=== PATIENT | female | born 1980 | race Caucasian/White ===

== ENCOUNTER 2017-12-09 17:47 | Emergency (ER) | payer MEDICARE ==
[~2017-12-09 17:47] MED LIST: ESCI20TA MT; GABA-531 MT; HYDR200T80 PO
[2017-12-09 22:28] VITALS: BP 121/78
[2017-12-09] MEDS ORDERED: HYDROCODONE/ACETAMINOPHEN 5/325MG TABLET PO ONE (23:00)
[2017-12-09] MEDS ORDERED: ACYCLOVIR 400 MG TABLET PO ONE (23:00)
== END 2017-12-09 20:14 | disposition left against medical advice (07) ==
LOC: ER 17:47
DX: Z53.21 Procedure and treatment not carried out due to patient leaving prior to being seen by health care provider (principal)

== ENCOUNTER 2020-07-09 14:40 | Inpatient (IN) | payer MEDICARE, MEDICAID ==
[~2020-07-09] VITALS: Ht 162.6 cm; Wt 65.3 kg
[~2020-07-09 14:40] MED LIST changes: +CHOL400D7 PO; -ESCI20TA MT; +FISH1CAP2 PO; -GABA-531 MT; -HYDR200T80 PO; +MULT-1146 MT
[2020-07-09 15:45] LABS: HEMOGLOBIN. 8.5 g/dL (12.0-16.0); MEAN CORPUSCULAR HEMOGLOBIN 25.2 pg (28.0-32.0); MEAN CORPUSCULAR VOLUME 77.2 fL (81.0-99.0); PLATELET 198 x1000/uL (130-400); RED BLOOD CELL COUNT 3.37 mill/uL (4.2-5.4); RED CELL DISTRIBUTION WIDTH 17.7 % (11.6-14.6)
[2020-07-09 15:51] LABS: CHLORIDE 108 mEq/L (98-107)
[2020-07-09 15:52] LABS: HCG SCREEN NEGATIVE
[2020-07-09 16:02] LABS: PROTHROMBIN TIME 11.2 sec (9.6-11.0)
[2020-07-09 16:20] LABS: PLATELET ESTIMATE NORMAL
[2020-07-09] MEDS ORDERED: ACETAMINOPHEN 325MG TABLET PO PRN (20:15)
[2020-07-09] MEDS ORDERED: MAGNESIUM/ALUMINUM HYDROXIDE/SIMETHICONE 30ML UDC PO PRN (20:15)
[2020-07-09] MEDS ORDERED: CLONIDINE 0.1MG TABLET PO PRN (20:15)
[2020-07-09] MEDS ORDERED: GUAIFENESIN 200MG/10ML SUGAR FREE UDC PO PRN (20:15)
[2020-07-09] MEDS ORDERED: HYDRALAZINE 20MG/ML VIAL IV PRN (20:15)
[2020-07-09] MEDS ORDERED: IPRATROPIUM/ALBUTEROL 0.5-3(2.5)MG/3ML NEB HHN PRN (20:15)
[2020-07-09] MEDS ORDERED: AZITHROMYCIN 500 MG in DEXT 5% WATER 250 ML IV ONE (20:30)
[2020-07-09] MEDS ORDERED: CEFTRIAXONE 1 G PREMIX 50 ML IV ONE (20:30)
[2020-07-09 20:42] LABS: CLARITY URINE CLEAR (CLEAR); COLOR URINE YELLOW (YELLOW); KETONES URINE NEGATIVE (NEGATIVE); LEUKOCYTE ESTERASE URINE NEGATIVE (NEGATIVE); NITRITE URINE NEGATIVE (NEGATIVE); OCCULT BLOOD URINE 2+ (NEGATIVE); PH URINE 7.5 (4.5-8.0); PROTEIN URINE NEGATIVE (NEGATIVE); SPECIFIC GRAVITY URINE 1.016 (1.005-1.030); UROBILINOGEN URINE 0.2 E.U./dL (0.2-1.0)
[2020-07-09 21:00] LABS: *BARBITURATES SCREEN URINE NEGATIVE (NEGATIVE); *BENZODIAZEPINES SCREEN URINE NEGATIVE (NEGATIVE); *COCAINE SCREEN URINE NEGATIVE (NEGATIVE)
[2020-07-09] MEDS: ENOXAPARIN 40MG/0.4ML SYR SUBCUT SCH (21:00)
[2020-07-09 21:01] LABS: *AMPHETAMINES SCREEN URINE PRESUMTIVE POSITIVE (NEGATIVE); CANNABINOID URINE SCREEN NEGATIVE (NEGATIVE); METHADONE URINE SCREEN NEGATIVE (NEGATIVE); OPIATES URINE SCREEN NEGATIVE (NEGATIVE); PHENCYCLIDINE URINE SCREEN NEGATIVE (NEGATIVE)
[2020-07-09] MEDS: MORPHINE SULFATE 2 MG/ML CPJ (NOT FOR IM USE) IV PRN (21:30)
[2020-07-09] MEDS: SODIUM CHLORIDE 0.9% INJ 3ML FLUSH IVF SCH (22:00)
[2020-07-09] MEDS: ONDANSETRON HCL 4MG/2ML INJ IV PRN (22:06)
[2020-07-09] MEDS ORDERED: IOHEXOL-350 100 ML BOTTLE ONE (23:16)
[2020-07-10] VITALS (7 sets, daily range): BP systolic 99–142; BP diastolic 70–87
[2020-07-10] MEDS ORDERED: P20 MT (00:21)
[2020-07-10] MEDS ORDERED: HYDR200T80 PO (00:21)
[2020-07-10] MEDS ORDERED: METH2.5T MT (00:21)
[2020-07-10 00:40] LABS: CREATINE KINASE 17 IU/L (26-192); CREATINE KINASE MB FRACTION < 1.0 ng/mL (0.5-3.6)
[2020-07-10] MEDS: LORAZEPAM 2MG/ML CPJ IV PRN ×2 (01:17→13:46)
[2020-07-10] MEDS: SODIUM CHLORIDE 0.9% INJ 3ML FLUSH IVF SCH ×3 (05:55→23:01)
[2020-07-10] MEDS: MORPHINE SULFATE 2 MG/ML CPJ (NOT FOR IM USE) IV PRN ×3 (06:14→18:51)
[2020-07-10 06:37] LABS: HEMATOCRIT. 31.3 % (36.0-48.0); HEMOGLOBIN. 9.9 g/dL (12.0-16.0); MEAN CORPUSCULAR VOLUME 79.4 fL (81.0-99.0); MEAN PLATELET VOLUME 8.4 fl (7.4-10.4); PLATELET 209 x1000/uL (130-400); RED BLOOD CELL COUNT 3.95 mill/uL (4.2-5.4)
[2020-07-10 06:48] LABS: CHLORIDE 107 mEq/L (98-107)
[2020-07-10 07:12] LABS: CREATINE KINASE MB FRACTION < 1.0 ng/mL (0.5-3.6)
[2020-07-10 07:14] LABS: CREATINE KINASE 16 IU/L (26-192)
[2020-07-10] MEDS: NYSTATIN 100,000 UNITS/ML 5ML UDC SSW SCH ×2 (12:34→17:03)
[2020-07-10] MEDS: ONDANSETRON HCL 4MG/2ML INJ IV PRN (12:43)
[2020-07-10] MEDS: DIPHENHYDRAMINE 50MG/ML VIAL IV PRN (17:03)
[2020-07-10] MEDS: CEFTRIAXONE 1,000 MG in DEXTROSE 5% WATER 50 ML IV SCH (20:43)
[2020-07-10] MEDS: HYDROCODONE/ACETAMINOPHEN 5/325MG TABLET PO PRN (20:43)
[2020-07-10] MEDS: AZITHROMYCIN 500 MG in DEXT 5% WATER 250 ML IV SCH (20:43)
[2020-07-10] MEDS: ENOXAPARIN 40MG/0.4ML SYR SUBCUT SCH (20:44)
[2020-07-10 21:29] LABS: PLATELET ESTIMATE NORMAL
[2020-07-10] MEDS ORDERED: CEFTRIAXONE 1 G PREMIX 50 ML IV SCH (23:00)
[2020-07-10] MEDS ORDERED: AZITHROMYCIN 500 MG in DEXT 5% WATER 250 ML IV SCH (23:00)
[2020-07-10] MEDS: CELECOXIB 200MG CAPSULE PO SCH (23:01)
[2020-07-10] MEDS: PANTOPRAZOLE SODIUM 40 MG/VIAL IV SCH (23:01)
[2020-07-11] VITALS (7 sets, daily range): BP systolic 100–129; BP diastolic 57–78
[2020-07-11] MEDS: NYSTATIN 100,000 UNITS/ML 5ML UDC SSW SCH ×4 (01:17→17:35)
[2020-07-11] MEDS: MORPHINE SULFATE 2 MG/ML CPJ (NOT FOR IM USE) IV PRN ×4 (01:17→21:56)
[2020-07-11] MEDS: NITROGLYCERIN OINT 1GM/INCH UDPKT TD SCH ×4 (01:17→17:33)
[2020-07-11] MEDS: METHYLPREDNISOLONE SOD SUCC 125 MG/2 ML VIAL IV SCH ×4 (01:18→17:32)
[2020-07-11] MEDS: SODIUM CHLORIDE 0.9% INJ 3ML FLUSH IVF SCH ×3 (05:23→22:38)
[2020-07-11 07:04] LABS: HEMATOCRIT. 25.5 % (36.0-48.0); HEMOGLOBIN. 8.4 g/dL (12.0-16.0); MEAN CORPUSCULAR HEMOGLOBIN 25.6 pg (28.0-32.0); MEAN CORPUSCULAR VOLUME 77.4 fL (81.0-99.0); MEAN PLATELET VOLUME 8.5 fl (7.4-10.4); PLATELET 237 x1000/uL (130-400); RED CELL DISTRIBUTION WIDTH 17.6 % (11.6-14.6)
[2020-07-11 07:08] LABS: CHLORIDE 104 mEq/L (98-107)
[2020-07-11 07:22] LABS: CREATINE KINASE 10 IU/L (26-192)
[2020-07-11 07:23] LABS: T4 FREE 1.24 ng/dL (0.76-1.46)
[2020-07-11] MEDS: PANTOPRAZOLE SODIUM 40 MG/VIAL IV SCH (09:34)
[2020-07-11] MEDS: HYDROXYCHLOROQUINE SULFATE 200MG TABLET PO SCH (09:35)
[2020-07-11] MEDS: DOCUSATE SODIUM 100MG CAPSULE PO PRN (09:35)
[2020-07-11] MEDS: MYCOPHENOLATE MOFETIL 500MG TABLET PO SCH ×2 (09:35→20:23)
[2020-07-11] MEDS: CELECOXIB 200MG CAPSULE PO SCH ×2 (10:19→17:32)
[2020-07-11 13:52] LABS: PLATELET ESTIMATE NORMAL
[2020-07-11] MEDS: HYDROCODONE/ACETAMINOPHEN 5/325MG TABLET PO PRN (15:46)
[2020-07-11] MEDS: LORAZEPAM 2MG/ML CPJ IV PRN ×2 (15:51→22:38)
[2020-07-11] MEDS: CEFTRIAXONE 1,000 MG in DEXTROSE 5% WATER 50 ML IV SCH (20:23)
[2020-07-11] MEDS: AZITHROMYCIN 500 MG in DEXT 5% WATER 250 ML IV SCH (20:23)
[2020-07-11] MEDS: ENOXAPARIN 40MG/0.4ML SYR SUBCUT SCH (20:23)
[2020-07-12] VITALS (8 sets, daily range): BP systolic 115–145; BP diastolic 55–104
[2020-07-12] MEDS: NITROGLYCERIN OINT 1GM/INCH UDPKT TD SCH ×5 (00:17→23:40)
[2020-07-12] MEDS: METHYLPREDNISOLONE SOD SUCC 125 MG/2 ML VIAL IV SCH ×5 (00:17→23:39)
[2020-07-12] MEDS: NYSTATIN 100,000 UNITS/ML 5ML UDC SSW SCH ×5 (00:17→23:39)
[2020-07-12] MEDS: DIPHENHYDRAMINE 50MG/ML VIAL IV PRN ×2 (00:39→18:49)
[2020-07-12] MEDS: SODIUM CHLORIDE 0.9% INJ 3ML FLUSH IVF SCH ×3 (05:42→21:45)
[2020-07-12] MEDS: MORPHINE SULFATE 2 MG/ML CPJ (NOT FOR IM USE) IV PRN ×3 (05:58→22:23)
[2020-07-12] MEDS: PANTOPRAZOLE SODIUM 40 MG/VIAL IV SCH (08:41)
[2020-07-12] MEDS: DOCUSATE SODIUM 100MG CAPSULE PO PRN (08:41)
[2020-07-12] MEDS: MYCOPHENOLATE MOFETIL 500MG TABLET PO SCH ×2 (08:41→21:44)
[2020-07-12] MEDS: CELECOXIB 200MG CAPSULE PO SCH ×2 (08:41→18:28)
[2020-07-12] MEDS: HYDROXYCHLOROQUINE SULFATE 200MG TABLET PO SCH (08:42)
[2020-07-12] MEDS: LORAZEPAM 2MG/ML CPJ IV PRN ×3 (08:52→22:12)
[2020-07-12] MEDS: HYDROCODONE/ACETAMINOPHEN 5/325MG TABLET PO PRN (14:31)
[2020-07-12] MEDS: ONDANSETRON HCL 4MG/2ML INJ IV PRN (18:27)
[2020-07-12] MEDS: CEFTRIAXONE 1,000 MG in DEXTROSE 5% WATER 50 ML IV SCH (21:43)
[2020-07-12] MEDS: AZITHROMYCIN 500 MG TABLET PO SCH (21:44)
[2020-07-12] MEDS: ENOXAPARIN 40MG/0.4ML SYR SUBCUT SCH (21:44)
[2020-07-13] VITALS (9 sets, daily range): BP systolic 110–157; BP diastolic 78–105
[2020-07-13] MEDS: DIPHENHYDRAMINE 50MG/ML VIAL IV PRN ×3 (00:24→17:52)
[2020-07-13] MEDS: MORPHINE SULFATE 2 MG/ML CPJ (NOT FOR IM USE) IV PRN ×3 (04:42→21:55)
[2020-07-13] MEDS: LORAZEPAM 2MG/ML CPJ IV PRN ×3 (04:46→21:55)
[2020-07-13] MEDS: NYSTATIN 100,000 UNITS/ML 5ML UDC SSW SCH ×4 (05:11→23:31)
[2020-07-13] MEDS: METHYLPREDNISOLONE SOD SUCC 125 MG/2 ML VIAL IV SCH ×4 (05:12→23:32)
[2020-07-13] MEDS: NITROGLYCERIN OINT 1GM/INCH UDPKT TD SCH ×4 (05:12→23:31)
[2020-07-13] MEDS: SODIUM CHLORIDE 0.9% INJ 3ML FLUSH IVF SCH ×3 (06:58→21:27)
[2020-07-13] MEDS: PANTOPRAZOLE SODIUM 40 MG/VIAL IV SCH (10:03)
[2020-07-13] MEDS: MYCOPHENOLATE MOFETIL 500MG TABLET PO SCH ×2 (10:04→21:27)
[2020-07-13] MEDS: HYDROXYCHLOROQUINE SULFATE 200MG TABLET PO SCH (10:04)
[2020-07-13] MEDS: CELECOXIB 200MG CAPSULE PO SCH ×2 (10:04→17:47)
[2020-07-13] MEDS ORDERED: HYDROCORTISONE 1% CREAM 30GM TOP ONE (16:00)
[2020-07-13] MEDS: ACYCLOVIR 400 MG TABLET PO SCH ×2 (17:48→21:26)
[2020-07-13] MEDS: HYDROCODONE/ACETAMINOPHEN 10/325MG TABLET PO PRN (18:05)
[2020-07-13 19:06] LABS: ALDOLASE 9.7 U/L (3.3-10.3)
[2020-07-13] MEDS: FAMOTIDINE 20MG TABLET PO SCH (21:26)
[2020-07-13] MEDS: AZITHROMYCIN 500 MG TABLET PO SCH (21:26)
[2020-07-13] MEDS: ENOXAPARIN 40MG/0.4ML SYR SUBCUT SCH (21:26)
[2020-07-13] MEDS: CEFTRIAXONE 1,000 MG in DEXTROSE 5% WATER 50 ML IV SCH (21:27)
[2020-07-13] MEDS: HYDROCORTISONE 2.5% CREAM 20GM TOP SCH (21:28)
[2020-07-14] VITALS (8 sets, daily range): BP systolic 121–164; BP diastolic 77–86
[2020-07-14] MEDS: LORAZEPAM 2MG/ML CPJ IV PRN ×3 (05:12→23:17)
[2020-07-14] MEDS: MORPHINE SULFATE 2 MG/ML CPJ (NOT FOR IM USE) IV PRN ×2 (05:12→15:59)
[2020-07-14] MEDS: NYSTATIN 100,000 UNITS/ML 5ML UDC SSW SCH ×4 (05:12→23:15)
[2020-07-14] MEDS: METHYLPREDNISOLONE SOD SUCC 125 MG/2 ML VIAL IV SCH ×4 (05:12→23:15)
[2020-07-14] MEDS: SODIUM CHLORIDE 0.9% INJ 3ML FLUSH IVF SCH ×3 (05:13→21:51)
[2020-07-14] MEDS: NITROGLYCERIN OINT 1GM/INCH UDPKT TD SCH ×4 (05:13→23:16)
[2020-07-14 07:05] LABS: CHLORIDE 108 mEq/L (98-107)
[2020-07-14 07:12] LABS: HEMOGLOBIN. 8.1 g/dL (12.0-16.0); MEAN CORPUSCULAR HEMOGLOBIN 25.8 pg (28.0-32.0); MEAN CORPUSCULAR VOLUME 82.3 fL (81.0-99.0); MEAN PLATELET VOLUME 7.9 fl (7.4-10.4); PLATELET 280 x1000/uL (130-400); RED BLOOD CELL COUNT 3.16 mill/uL (4.2-5.4); RED CELL DISTRIBUTION WIDTH 23.2 % (11.6-14.6)
[2020-07-14] MEDS: HYDROXYCHLOROQUINE SULFATE 200MG TABLET PO SCH (09:11)
[2020-07-14] MEDS: ACYCLOVIR 400 MG TABLET PO SCH ×3 (09:12→17:33)
[2020-07-14] MEDS: HYDROCODONE/ACETAMINOPHEN 10/325MG TABLET PO PRN ×2 (09:14→22:37)
[2020-07-14] MEDS: MYCOPHENOLATE MOFETIL 500MG TABLET PO SCH ×2 (09:15→21:45)
[2020-07-14] MEDS: CELECOXIB 200MG CAPSULE PO SCH ×2 (09:16→16:00)
[2020-07-14] MEDS: FAMOTIDINE 20MG TABLET PO SCH ×2 (09:16→21:45)
[2020-07-14] MEDS: TRIAMCINOLONE ACETONIDE 0.1% CREAM 15GM TOP SCH ×2 (09:17→21:48)
[2020-07-14] MEDS: DIPHENHYDRAMINE 50MG/ML VIAL IV PRN ×2 (09:17→17:54)
[2020-07-14 10:10] LABS: ANTI-DNA DOUBLE STRANDED QUANT > 300 IU/mL (0-9)
[2020-07-14 13:06] LABS: ANTI-CARDIOLIPIN AB IGG < 9 GPL U/mL (0-14); ANTI-CARDIOLIPIN AB IGM < 9 MPL U/mL (0-12); ANTI-MYELOPEROXIDASE AB < 9.0 U/mL (0.0-9.0); ANTI-PROTEINASE 3 ABS < 3.5 U/mL (0.0-3.5); VITAMIN D 1-25 DIHYDROXY 8.2 pg/mL (19.9-79.3)
[2020-07-14 15:06] LABS: ANA IFA Positive (.); ANA SPECKLED PATTERN >1:1280 (.)
[2020-07-14 20:38] LABS: PLATELET ESTIMATE NORMAL
[2020-07-14] MEDS: ENOXAPARIN 40MG/0.4ML SYR SUBCUT SCH (21:46)
[2020-07-14] MEDS: HYDROCORTISONE 2.5% CREAM 20GM TOP SCH (21:48)
[2020-07-14] MEDS: METOPROLOL TARTRATE 50MG TABLET PO SCH (22:16)
[2020-07-15] VITALS: BP 128/81
[2020-07-15 04:00] VITALS: BP 141/86
[2020-07-15] MEDS: METHYLPREDNISOLONE SOD SUCC 125 MG/2 ML VIAL IV SCH (06:33)
[2020-07-15] MEDS: NYSTATIN 100,000 UNITS/ML 5ML UDC SSW SCH ×2 (06:33→13:21)
[2020-07-15] MEDS: NITROGLYCERIN OINT 1GM/INCH UDPKT TD SCH ×2 (06:34→13:23)
[2020-07-15] MEDS: SODIUM CHLORIDE 0.9% INJ 3ML FLUSH IVF SCH (06:37)
[2020-07-15 08:00] VITALS: BP 126/78
[2020-07-15] MEDS: FAMOTIDINE 20MG TABLET PO SCH (09:20)
[2020-07-15] MEDS: CELECOXIB 200MG CAPSULE PO SCH (09:20)
[2020-07-15] MEDS: HYDROXYCHLOROQUINE SULFATE 200MG TABLET PO SCH (09:20)
[2020-07-15] MEDS: MYCOPHENOLATE MOFETIL 500MG TABLET PO SCH (09:21)
[2020-07-15] MEDS: METOPROLOL TARTRATE 50MG TABLET PO SCH (09:24)
[2020-07-15] MEDS: TRIAMCINOLONE ACETONIDE 0.1% CREAM 15GM TOP SCH (09:30)
[2020-07-15 10:06] VITALS: BP 133/97
[2020-07-15] MEDS: HYDROCODONE/ACETAMINOPHEN 10/325MG TABLET PO PRN (10:06)
[2020-07-15] MEDS ORDERED: METHOTREXATE SODIUM/PF 50 MG/2 ML VIAL IM NR (13:00)
[2020-07-15] MEDS ORDERED: PREDNISONE 20MG TABLET PO SCH (13:00)
[2020-07-15] MEDS: ACYCLOVIR 400 MG TABLET PO SCH (13:36)
[2020-07-16 14:10] LABS: ATYPICAL P-ANCA <1:20 titer (Neg:<1:20); CYTOPLASMIC C-ANCA <1:20 titer (Neg:<1:20)
[2020-07-21] MEDS ORDERED: METHOTREXATE SODIUM/PF 50 MG/2 ML VIAL IM SCH (09:00)
== END 2020-07-15 14:25 | disposition home or self-care (01) | DRG 193 ==
LOC: ER 14:40 → 8WST 18:10 → EDBEDREQ 18:17 → ENRESERV 20:07 → 7WST 07-10 11:37 → 5EST 07-11 01:50
PROVIDERS: ADMIT Internal Medicine; ATTEND Internal Medicine
DX: J18.9 Pneumonia, unspecified organism (principal); J96.00 Acute respiratory failure, unspecified whether with hypoxia or hypercapnia; E43 Unspecified severe protein-calorie malnutrition; B37.0 Candidal stomatitis; I73.01 Raynaud's syndrome with gangrene; E85.0 Non-neuropathic heredofamilial amyloidosis; M32.9 Systemic lupus erythematosus, unspecified; M13.0 Polyarthritis, unspecified; D50.9 Iron deficiency anemia, unspecified; B00.9 Herpesviral infection, unspecified; I10 Essential (primary) hypertension; F41.1 Generalized anxiety disorder; I77.6 Arteritis, unspecified; Z20.822 Contact with and (suspected) exposure to COVID-19; K21.9 Gastro-esophageal reflux disease without esophagitis; Z91.19 Patient's noncompliance with other medical treatment and regimen; Z98.891 History of uterine scar from previous surgery; Z98.51 Tubal ligation status; Z68.24 Body mass index [BMI] 24.0-24.9, adult
CPT/HCPCS: 36415; 71045; 71275; 80048; 80053; 80305; 81003; 82085; 82550; 82553; 82652; 83520; 83880; 84439; 84484; 84703; 85025; 85379; 85651; 86140; 86147; 86160; 86225; 86256; 86332; 93005; 93970; 94640; 97116; 97162; 97165; 99285; A6261; C1893; C9113; J0456; J0696; J1200; J1650; J2060; J2270; J2405; J2930; J7060; J7512; J7517; J9260; Q9967; U0003; U0005

== ENCOUNTER 2020-09-19 03:10 | Inpatient (IN) | payer MEDICARE, MEDICAID ==
[~2020-09-19] VITALS: Ht 162.6 cm; Wt 64.4 kg
[~2020-09-19 03:10] MED LIST changes: +HYDR200T80 PO; +METH2.5T MT; +P20 MT
[2020-09-19] MEDS ORDERED: MORPHINE SULFATE 4 MG/ML CPJ (NOT FOR IM USE) IV STA (03:44)
[2020-09-19] MEDS ORDERED: ONDANSETRON HCL 4MG/2ML INJ IV STA (03:44)
[2020-09-19] MEDS ORDERED: SODIUM CHLORIDE 0.9% 1000ML BAG (SEPSIS BOLUS) IV ONE ×2 (04:45→15:00)
[2020-09-19] MEDS ORDERED: CEFTRIAXONE 1 G PREMIX 50 ML IV ONE (04:45)
[2020-09-19] MEDS ORDERED: AZITHROMYCIN 500 MG in DEXT 5% WATER 250 ML IV ONE (04:45)
[2020-09-19 05:30] LABS: HEMATOCRIT. 30.8 % (36.0-48.0); HEMOGLOBIN. 9.6 g/dL (12.0-16.0); MEAN CORPUSCULAR HEMOGLOBIN 24.6 pg (28.0-32.0); MEAN CORPUSCULAR VOLUME 79.4 fL (81.0-99.0); MEAN PLATELET VOLUME 7.9 fl (7.4-10.4); PLATELET 257 x1000/uL (130-400); RED BLOOD CELL COUNT 3.88 mill/uL (4.2-5.4); RED CELL DISTRIBUTION WIDTH 23.9 % (11.6-14.6)
[2020-09-19 05:31] LABS: CHLORIDE 107 mEq/L (98-107)
[2020-09-19 06:50] LABS: CLARITY URINE CLEAR (CLEAR); COLOR URINE YELLOW (YELLOW); KETONES URINE NEGATIVE (NEGATIVE); LEUKOCYTE ESTERASE URINE NEGATIVE (NEGATIVE); NITRITE URINE NEGATIVE (NEGATIVE); OCCULT BLOOD URINE 2+ (NEGATIVE); PROTEIN URINE 2+ (NEGATIVE); SPECIFIC GRAVITY URINE 1.014 (1.005-1.030); UROBILINOGEN URINE 0.2 E.U./dL (0.2-1.0)
[2020-09-19 07:05] LABS: PLATELET ESTIMATE NORMAL
[2020-09-19 07:05] LABS: *BARBITURATES SCREEN URINE NEGATIVE (NEGATIVE); *COCAINE SCREEN URINE NEGATIVE (NEGATIVE)
[2020-09-19 07:06] LABS: *AMPHETAMINES SCREEN URINE PRESUMTIVE POSITIVE (NEGATIVE); *BENZODIAZEPINES SCREEN URINE PRESUMTIVE POSITIVE (NEGATIVE); CANNABINOID URINE SCREEN NEGATIVE (NEGATIVE); METHADONE URINE SCREEN NEGATIVE (NEGATIVE); OPIATES URINE SCREEN PRESUMTIVE POSITIVE (NEGATIVE); PHENCYCLIDINE URINE SCREEN NEGATIVE (NEGATIVE)
[2020-09-19] MEDS ORDERED: PIPERACILLIN/TAZ 3.375G PREMIX 50 ML IV SCH ×2 (07:30→07:45)
[2020-09-19] MEDS ORDERED: MAGNESIUM/ALUMINUM HYDROXIDE/SIMETHICONE 30ML UDC PO PRN (07:30)
[2020-09-19] MEDS ORDERED: DOCUSATE SODIUM 100MG CAPSULE PO PRN (07:30)
[2020-09-19] MEDS ORDERED: ZOLPIDEM TARTRATE 5MG TABLET PO PRN (07:30)
[2020-09-19] MEDS ORDERED: TRAMADOL 50MG TABLET PO PRN (07:30)
[2020-09-19] MEDS ORDERED: NITROGLYCERIN 0.4MG TABLET SL SL PRN (07:30)
[2020-09-19] MEDS ORDERED: ALBUTEROL 6.7GM HFA INHALER ORI PRN (07:30)
[2020-09-19] MEDS ORDERED: CLONIDINE 0.1MG TABLET PO PRN (07:30)
[2020-09-19] MEDS ORDERED: FAMOTIDINE 20MG TABLET PO SCH (09:00)
[2020-09-19] MEDS ORDERED: VANCOMYCIN 1 G PREMIX 200 ML IV SCH (09:00)
[2020-09-19] MEDS: ASCORBIC ACID 500 MG TABLET PO SCH ×2 (09:25→21:23)
[2020-09-19] MEDS: FAMOTIDINE 20MG TABLET PO SCH (09:25)
[2020-09-19] MEDS: ENOXAPARIN 40MG/0.4ML SYR SUBCUT SCH (09:26)
[2020-09-19] MEDS: ZINC SULFATE 220 MG ( 50 ) CAPSULE PO SCH (09:57)
[2020-09-19] MEDS: CHOLECALCIFEROL (D3) 1000 UNIT TABLET PO SCH (09:57)
[2020-09-19] MEDS ORDERED: IOHEXOL-350 100 ML BOTTLE ONE (10:47)
[2020-09-19] MEDS ORDERED: PIPERACILLIN/TAZOBACTAM 2.25G in DEXTROSE 5% WATER 50ML IV SCH (13:00)
[2020-09-19] MEDS ORDERED: NALOXONE HCL 0.4MG/ML VIAL IV PRN (13:00)
[2020-09-19] MEDS: ONDANSETRON HCL 4MG/2ML INJ IV PRN (13:17)
[2020-09-19 14:26] LABS: T4 FREE 1.15 ng/dL (0.76-1.46)
[2020-09-19 15:02] LABS: FERRITIN 530 ng/mL (10-291)
[2020-09-19 15:06] LABS: FOLIC ACID (FOLATE) SERUM > 20.00 ng/mL (>5.38)
[2020-09-19 15:15] LABS: VITAMIN B12 SERUM 532 pg/mL (211-911)
[2020-09-19] MEDS: ALBUTEROL 6.7GM HFA INHALER ORI SCH ×2 (15:20→20:10)
[2020-09-19] MEDS ORDERED: ACETAMINOPHEN 650MG SUPP PR NR (17:30)
[2020-09-19] MEDS ORDERED: METOCLOPRAMIDE HCL 10MG/2ML VIAL IV NR (17:30)
[2020-09-19] MEDS: MEROPENEM 1,000 MG in SODIUM CHLORIDE 0.9% 100 ML IV SCH (19:49)
[2020-09-19] MEDS ORDERED: FILGRASTIM 300 MCG/ML VIAL SUBCUT SCH (21:00)
[2020-09-19] MEDS: HYDROXYCHLOROQUINE SULFATE 200MG TABLET PO SCH (21:23)
[2020-09-19] MEDS ORDERED: FILGRASTIM-TBO 300 MCG/0.5 ML SYRINGE SQ SCH (21:30)
[2020-09-19 23:37] LABS: CREATINE KINASE MB FRACTION 2.4 ng/mL (0.5-3.6)
[2020-09-20] VITALS: BP 97/53
[2020-09-20] MEDS ORDERED: VANCOMYCIN 750 MG PREMIX 150 ML IV SCH
[2020-09-20] MEDS: ALBUTEROL 6.7GM HFA INHALER ORI SCH ×4 (03:25→20:26)
[2020-09-20] MEDS: KETOROLAC 15MG/ML VIAL IV PRN ×3 (03:49→17:03)
[2020-09-20 04:15] VITALS: BP 93/56
[2020-09-20] MEDS: MEROPENEM 1,000 MG in SODIUM CHLORIDE 0.9% 100 ML IV SCH (06:00)
[2020-09-20 06:52] LABS: HEMATOCRIT. 26.7 % (36.0-48.0); HEMOGLOBIN. 8.4 g/dL (12.0-16.0); MEAN CORPUSCULAR HEMOGLOBIN 24.8 pg (28.0-32.0); MEAN PLATELET VOLUME 8.6 fl (7.4-10.4); PLATELET 183 x1000/uL (130-400); RED BLOOD CELL COUNT 3.38 mill/uL (4.2-5.4); RED CELL DISTRIBUTION WIDTH 24.2 % (11.6-14.6)
[2020-09-20 06:54] LABS: CHLORIDE 114 mEq/L (98-107)
[2020-09-20 08:10] VITALS: BP 89/47
[2020-09-20] MEDS: ENOXAPARIN 40MG/0.4ML SYR SUBCUT SCH (09:00)
[2020-09-20] MEDS ORDERED: POTASSIUM CHLORIDE 20MEQ/PACKET PO SCH (09:15)
[2020-09-20] MEDS: HYDROXYCHLOROQUINE SULFATE 200MG TABLET PO SCH (09:22)
[2020-09-20] MEDS: ASCORBIC ACID 500 MG TABLET PO SCH ×2 (09:22→21:10)
[2020-09-20] MEDS: FAMOTIDINE 20MG TABLET PO SCH (09:22)
[2020-09-20] MEDS: CHOLECALCIFEROL (D3) 1000 UNIT TABLET PO SCH (09:22)
[2020-09-20] MEDS: ZINC SULFATE 220 MG ( 50 ) CAPSULE PO SCH (09:25)
[2020-09-20] MEDS ORDERED: POTASSIUM CHLORIDE 20MEQ TABLET SR PO NR (10:00)
[2020-09-20 12:09] VITALS: BP 84/41
[2020-09-20 13:56] LABS: CREATINE KINASE MB FRACTION 5.1 ng/mL (0.5-3.6)
[2020-09-20] MEDS ORDERED: SODIUM CHLORIDE 0.9% 500 ML IV ONE (14:15)
[2020-09-20] MEDS: MEROPENEM 500MG in NORMAL SALINE 50ML IV SCH (14:23)
[2020-09-20] MEDS: ENOXAPARIN 30MG/0.3ML SYR SUBCUT SCH (14:24)
[2020-09-20 16:22] VITALS: BP 90/45
[2020-09-20] MEDS: LORAZEPAM 0.5MG TABLET PO PRN (18:34)
[2020-09-20 20:00] VITALS: BP 82/53
[2020-09-21] VITALS (20 sets, daily range): BP systolic 70–135; BP diastolic 40–83
[2020-09-21] MEDS: ALBUTEROL 6.7GM HFA INHALER ORI SCH ×3 (00:58→12:50)
[2020-09-21] MEDS: MEROPENEM 500MG in NORMAL SALINE 50ML IV SCH ×2 (02:24→15:22)
[2020-09-21] MEDS: ACETAMINOPHEN 325MG TABLET PO PRN ×3 (05:54→23:15)
[2020-09-21] MEDS: HYDROXYCHLOROQUINE SULFATE 200MG TABLET PO SCH (09:00)
[2020-09-21] MEDS: MIDODRINE HCL 2.5MG TABLET PO SCH ×3 (09:00→19:10)
[2020-09-21] MEDS: ZINC SULFATE 220 MG ( 50 ) CAPSULE PO SCH (09:00)
[2020-09-21] MEDS: FAMOTIDINE 20MG TABLET PO SCH (09:00)
[2020-09-21] MEDS: CHOLECALCIFEROL (D3) 1000 UNIT TABLET PO SCH (09:00)
[2020-09-21] MEDS: ASCORBIC ACID 500 MG TABLET PO SCH ×2 (09:00→21:00)
[2020-09-21] MEDS ORDERED: VANCOMYCIN 750 MG PREMIX 150 ML IV SCH (10:00)
[2020-09-21 10:13] LABS: PLATELET ESTIMATE NORMAL
[2020-09-21 10:24] LABS: HEMATOCRIT. 22.3 % (36.0-48.0); HEMOGLOBIN. 7.4 g/dL (12.0-16.0); MEAN CORPUSCULAR HEMOGLOBIN 25.4 pg (28.0-32.0); MEAN CORPUSCULAR VOLUME 76.6 fL (81.0-99.0); MEAN PLATELET VOLUME 8.3 fl (7.4-10.4); PLATELET 227 x1000/uL (130-400); RED BLOOD CELL COUNT 2.91 mill/uL (4.2-5.4); RED CELL DISTRIBUTION WIDTH 24.6 % (11.6-14.6)
[2020-09-21 10:43] LABS: CHLORIDE 114 mEq/L (98-107)
[2020-09-21 10:49] LABS: PHOSPHORUS 5.7 mg/dL (2.5-4.9)
[2020-09-21] MEDS ORDERED: MAGNESIUM 2 G PREMIX 50 ML IV SCH (13:00)
[2020-09-21] MEDS ORDERED: SODIUM CHLORIDE 0.9% 1,000 ML IV SCH ×2 (14:15→17:00)
[2020-09-21] MEDS: THROAT LOZENGES-BENZOCAINE/MENTH/CETYLPYRD CL LOZENGES MM PRN ×2 (14:48→18:37)
[2020-09-21] MEDS: ENOXAPARIN 30MG/0.3ML SYR SUBCUT SCH (14:49)
[2020-09-21] MEDS ORDERED: VANCOMYCIN 750 MG PREMIX 150 ML IV NR (15:00)
[2020-09-21] MEDS ORDERED: ALBUMIN HUMAN 25GM/100ML (25%) IV SCH (16:00)
[2020-09-21 17:07] LABS: BG BASE EXCESS -11.6 mmol/L (-2.0-2.0); BG CARBOXYHEMOGLOBIN 0.9 % (0.5-1.5); BG DEOXYHEMOGLOBIN 1.3 % (0.0-5.0); BG FRACTION INSPIRED OXYGEN 40; BG HCO3 ACT 11.3 mmol/L (22.0-26.0); BG METHEMOGLOBIN 0.3 % (0.0-1.5); BG OXYGEN SATURATION 98.7 % (92.0-98.5); BG OXYHEMOGLOBIN 97.5 % (94.0-97.0); BG PCO2 17.1 mmHg (35.0-45.0); BG PH 7.438 (7.350-7.450); BG SAMPLE SITE RIGHT RADIAL; BG TOTAL HEMOGLOBIN 6.7 g/dL (12.0-18.0); BG VENT MODE MASK - SIMPLE
[2020-09-21 18:07] LABS: PLATELET ESTIMATE NORMAL
[2020-09-21] MEDS ORDERED: ALBUMIN HUMAN 25GM/100ML (25%) IV NR (18:30)
[2020-09-21] MEDS ORDERED: IPRATROPIUM/ALBUTEROL 0.5-3(2.5)MG/3ML NEB HHN PRN (18:45)
[2020-09-21] MEDS ORDERED: NOREPINEPHRINE 32 MG in DEXT 5% WATER 218 ML IV PRN (21:00)
[2020-09-21] MEDS: LORAZEPAM 0.5MG TABLET PO PRN (23:15)
[2020-09-22] VITALS (98 sets, daily range): BP systolic 61–132; BP diastolic 13–99
[2020-09-22] MEDS: MEROPENEM 500MG in NORMAL SALINE 50ML IV SCH ×2 (01:15→14:56)
[2020-09-22] MEDS: MORPHINE SULFATE 2 MG/ML CPJ (NOT FOR IM USE) IV PRN ×5 (01:31→22:00)
[2020-09-22] MEDS: LORAZEPAM 0.5MG TABLET PO PRN ×3 (03:56→20:19)
[2020-09-22 07:22] LABS: CHLORIDE 116 mEq/L (98-107); HEMATOCRIT. 27.8 % (36.0-48.0); HEMOGLOBIN. 8.8 g/dL (12.0-16.0); MEAN CORPUSCULAR HEMOGLOBIN 25.2 pg (28.0-32.0); MEAN CORPUSCULAR VOLUME 79.7 fL (81.0-99.0); MEAN PLATELET VOLUME 8.2 fl (7.4-10.4); PLATELET 226 x1000/uL (130-400); RED BLOOD CELL COUNT 3.49 mill/uL (4.2-5.4); RED CELL DISTRIBUTION WIDTH 23.7 % (11.6-14.6)
[2020-09-22 07:35] LABS: PHOSPHORUS 5.5 mg/dL (2.5-4.9)
[2020-09-22 07:37] LABS: CREATINE KINASE 275 IU/L (26-192)
[2020-09-22] MEDS: ZINC SULFATE 220 MG ( 50 ) CAPSULE PO SCH (08:30)
[2020-09-22] MEDS: ASCORBIC ACID 500 MG TABLET PO SCH ×2 (08:30→20:19)
[2020-09-22] MEDS: HYDROXYCHLOROQUINE SULFATE 200MG TABLET PO SCH (08:30)
[2020-09-22] MEDS: FAMOTIDINE 20MG TABLET PO SCH (08:30)
[2020-09-22] MEDS: MIDODRINE HCL 2.5MG TABLET PO SCH (08:30)
[2020-09-22] MEDS: THROAT LOZENGES-BENZOCAINE/MENTH/CETYLPYRD CL LOZENGES MM PRN ×2 (08:31→15:00)
[2020-09-22] MEDS: CHOLECALCIFEROL (D3) 1000 UNIT TABLET PO SCH (08:31)
[2020-09-22] MEDS: IPRATROPIUM/ALBUTEROL 0.5-3(2.5)MG/3ML NEB HHN SCH ×3 (08:43→21:01)
[2020-09-22] MEDS ORDERED: DEXT 5%/0.9% NACL 1,000 ML IV SCH (08:48)
[2020-09-22] MEDS ORDERED: MIDODRINE HCL 5MG TABLET PO SCH (09:00)
[2020-09-22] MEDS ORDERED: MIDODRINE HCL 2.5MG TABLET PO NR (09:08)
[2020-09-22 10:30] LABS: BG BASE EXCESS -12.4 mmol/L (-2.0-2.0); BG FRACTION INSPIRED OXYGEN 36; BG METHEMOGLOBIN 0.4 % (0.0-1.5); BG OXYHEMOGLOBIN 95.6 % (94.0-97.0); BG PCO2 19.1 mmHg (35.0-45.0); BG PH 7.378 (7.350-7.450); BG PO2 92.1 mmHg (75.0-100.0); BG SAMPLE SITE RIGHT RADIAL; BG TOTAL HEMOGLOBIN 9.1 g/dL (12.0-18.0); BG VENT MODE NASAL CANNULA
[2020-09-22] MEDS ORDERED: VANCOMYCIN 1 G PREMIX 200 ML IV NR (13:00)
[2020-09-22] MEDS ORDERED: VANCOMYCIN 750 MG PREMIX 150 ML IV NR (13:00)
[2020-09-22] MEDS: SODIUM BICARBONATE 150 MEQ in DEXTROSE 5% WATER 1,000 ML IV SCH (13:24)
[2020-09-22] MEDS: MIDODRINE HCL 5MG TABLET PO SCH ×2 (13:28→17:42)
[2020-09-22] MEDS ORDERED: BACLOFEN 10MG TABLET PO NR (14:30)
[2020-09-22] MEDS: ENOXAPARIN 30MG/0.3ML SYR SUBCUT SCH (14:42)
[2020-09-22] MEDS: VISCOUS LIDOCAINE 2% 15 ML UDC MM PRN (16:03)
[2020-09-22 17:03] LABS: BG CARBOXYHEMOGLOBIN 0.3 % (0.5-1.5); BG DEOXYHEMOGLOBIN 0.9 % (0.0-5.0); BG FRACTION INSPIRED OXYGEN 100; BG HCO3 ACT 10.9 mmol/L (22.0-26.0); BG METHEMOGLOBIN 0.3 % (0.0-1.5); BG OXYGEN SATURATION 99.1 % (92.0-98.5); BG OXYHEMOGLOBIN 98.5 % (94.0-97.0); BG PCO2 15.6 mmHg (35.0-45.0); BG PH 7.462 (7.350-7.450); BG PO2 226.1 mmHg (75.0-100.0); BG SAMPLE SITE RIGHT RADIAL; BG TOTAL HEMOGLOBIN 9.2 g/dL (12.0-18.0); BG VENT MODE MASK - NRB
[2020-09-22 17:09] LABS: PLATELET ESTIMATE NORMAL
[2020-09-22] MEDS ORDERED: SODIUM BICARBONATE 8.4% 1 MEQ/ML 50ML SYR IV NR (17:11)
[2020-09-22] MEDS: CALCIUM CARBONATE 1,250 MG/5 ML UDC PO SCH (17:42)
[2020-09-22] MEDS: PHENYLEPHRINE 100 MG in DEXT 5% WATER 240 ML IV PRN (17:42)
[2020-09-22] MEDS: ACETAMINOPHEN 325MG TABLET PO PRN (19:51)
[2020-09-23] VITALS (90 sets, daily range): BP systolic 49–150; BP diastolic 20–107
[2020-09-23] MEDS: SODIUM BICARBONATE 150 MEQ in DEXTROSE 5% WATER 1,000 ML IV SCH (01:28)
[2020-09-23] MEDS: MEROPENEM 500MG in NORMAL SALINE 50ML IV SCH ×2 (01:28→13:40)
[2020-09-23 02:12] LABS: BG BASE EXCESS -4.9 mmol/L (-2.0-2.0); BG CARBOXYHEMOGLOBIN 0.1 % (0.5-1.5); BG DEOXYHEMOGLOBIN 1.3 % (0.0-5.0); BG FRACTION INSPIRED OXYGEN 100; BG METHEMOGLOBIN 0.3 % (0.0-1.5); BG OXYGEN SATURATION 98.7 % (92.0-98.5); BG OXYHEMOGLOBIN 98.3 % (94.0-97.0); BG PH 7.507 (7.350-7.450); BG PO2 205.2 mmHg (75.0-100.0); BG SAMPLE SITE RIGHT RADIAL; BG TOTAL HEMOGLOBIN 8.7 g/dL (12.0-18.0); BG VENT MODE MASK - NRB
[2020-09-23] MEDS: IPRATROPIUM/ALBUTEROL 0.5-3(2.5)MG/3ML NEB HHN SCH ×4 (02:23→20:01)
[2020-09-23] MEDS: VISCOUS LIDOCAINE 2% 15 ML UDC MM PRN ×2 (04:16→16:59)
[2020-09-23] MEDS: MORPHINE SULFATE 2 MG/ML CPJ (NOT FOR IM USE) IV PRN ×5 (04:26→22:15)
[2020-09-23 05:53] LABS: CHLORIDE 112 mEq/L (98-107)
[2020-09-23 06:01] LABS: PHOSPHORUS 3.4 mg/dL (2.5-4.9)
[2020-09-23 06:26] LABS: HEPATITIS B SURFACE ANTIGEN NEGATIVE
[2020-09-23 06:29] LABS: HEMATOCRIT. 27.7 % (36.0-48.0); HEMOGLOBIN. 9.2 g/dL (12.0-16.0); MEAN CORPUSCULAR HEMOGLOBIN 25.6 pg (28.0-32.0); MEAN CORPUSCULAR VOLUME 76.8 fL (81.0-99.0); MEAN PLATELET VOLUME 8.3 fl (7.4-10.4); PLATELET 200 x1000/uL (130-400); RED CELL DISTRIBUTION WIDTH 23.6 % (11.6-14.6)
[2020-09-23 06:55] LABS: HEPATITIS A AB IGM NEGATIVE (NEGATIVE)
[2020-09-23] MEDS: THROAT LOZENGES-BENZOCAINE/MENTH/CETYLPYRD CL LOZENGES MM PRN (09:33)
[2020-09-23] MEDS: ZINC SULFATE 220 MG ( 50 ) CAPSULE PO SCH (09:33)
[2020-09-23] MEDS: CHOLECALCIFEROL (D3) 1000 UNIT TABLET PO SCH (09:33)
[2020-09-23] MEDS: FAMOTIDINE 20MG TABLET PO SCH (09:34)
[2020-09-23] MEDS: ASCORBIC ACID 500 MG TABLET PO SCH ×2 (09:34→21:23)
[2020-09-23] MEDS: HYDROXYCHLOROQUINE SULFATE 200MG TABLET PO SCH (09:34)
[2020-09-23] MEDS: MIDODRINE HCL 5MG TABLET PO SCH ×3 (09:34→17:00)
[2020-09-23] MEDS: CALCIUM CARBONATE 1,250 MG/5 ML UDC PO SCH ×2 (09:36→16:59)
[2020-09-23] MEDS ORDERED: POTASSIUM CHLORIDE 20MEQ TABLET SR PO SCH (11:00)
[2020-09-23] MEDS: DEXT 5%/0.9% NACL 1,000 ML IV SCH ×2 (11:09→21:23)
[2020-09-23] MEDS: ENOXAPARIN 30MG/0.3ML SYR SUBCUT SCH (13:40)
[2020-09-23] MEDS: PHENYLEPHRINE 100 MG in DEXT 5% WATER 240 ML IV PRN (14:19)
[2020-09-23 20:16] LABS: PLATELET ESTIMATE NORMAL
[2020-09-23] MEDS: ACETAMINOPHEN 325MG TABLET PO PRN (22:13)
[2020-09-24] VITALS (57 sets, daily range): BP systolic 66–173; BP diastolic 26–95
[2020-09-24] MEDS: IPRATROPIUM/ALBUTEROL 0.5-3(2.5)MG/3ML NEB HHN SCH ×4 (00:57→19:00)
[2020-09-24] MEDS: MEROPENEM 500MG in NORMAL SALINE 50ML IV SCH ×2 (03:21→13:21)
[2020-09-24 05:22] LABS: CHLORIDE 111 mEq/L (98-107)
[2020-09-24 05:28] LABS: PHOSPHORUS 3.3 mg/dL (2.5-4.9)
[2020-09-24] MEDS: DEXT 5%/0.9% NACL 1,000 ML IV SCH (05:52)
[2020-09-24 06:27] LABS: HEMOGLOBIN. 8.7 g/dL (12.0-16.0); MEAN CORPUSCULAR HEMOGLOBIN 25.1 pg (28.0-32.0); MEAN CORPUSCULAR VOLUME 77.6 fL (81.0-99.0); MEAN PLATELET VOLUME 8.9 fl (7.4-10.4); PLATELET 146 x1000/uL (130-400); RED BLOOD CELL COUNT 3.48 mill/uL (4.2-5.4); RED CELL DISTRIBUTION WIDTH 23.7 % (11.6-14.6)
[2020-09-24] MEDS: MORPHINE SULFATE 2 MG/ML CPJ (NOT FOR IM USE) IV PRN ×4 (08:27→22:07)
[2020-09-24] MEDS: CALCIUM CARBONATE 1,250 MG/5 ML UDC PO SCH ×2 (08:56→17:57)
[2020-09-24] MEDS: CHOLECALCIFEROL (D3) 1000 UNIT TABLET PO SCH (08:57)
[2020-09-24] MEDS: ASCORBIC ACID 500 MG TABLET PO SCH ×2 (08:57→20:48)
[2020-09-24] MEDS: MIDODRINE HCL 5MG TABLET PO SCH ×3 (08:57→17:57)
[2020-09-24] MEDS: ZINC SULFATE 220 MG ( 50 ) CAPSULE PO SCH (08:57)
[2020-09-24] MEDS: HYDROXYCHLOROQUINE SULFATE 200MG TABLET PO SCH (08:57)
[2020-09-24] MEDS: FAMOTIDINE 20MG TABLET PO SCH (08:57)
[2020-09-24 10:18] LABS: PLATELET ESTIMATE NORMAL
[2020-09-24] MEDS: ACETAMINOPHEN 325MG TABLET PO PRN ×2 (10:35→20:48)
[2020-09-24] MEDS: ONDANSETRON HCL 4MG/2ML INJ IV PRN ×2 (11:49→18:25)
[2020-09-24] MEDS ORDERED: VANCOMYCIN 750 MG PREMIX 150 ML IV SCH (12:00)
[2020-09-24] MEDS: CALCIUM GLUCONATE 1GM PREMIX 50 ML IV SCH (12:39)
[2020-09-24 13:06] LABS: ANTI-DNA DOUBLE STRANDED QUANT 99 IU/mL (0-9)
[2020-09-24] MEDS: ENOXAPARIN 30MG/0.3ML SYR SUBCUT SCH (13:22)
[2020-09-24] MEDS: GUAIFENESIN 200MG/10ML SUGAR FREE UDC PO PRN (17:57)
[2020-09-24] MEDS: GUAIFENESIN 600MG ER TABLET PO SCH (20:49)
[2020-09-24] MEDS ORDERED: CALCIUM GLUCONATE 100MG/ML 10ML VIAL IV SCH (21:00)
[2020-09-25] VITALS (24 sets, daily range): BP systolic 95–136; BP diastolic 57–98
[2020-09-25] MEDS: CALCIUM GLUCONATE 1GM PREMIX 50 ML IV SCH ×2 (00:02→11:17)
[2020-09-25] MEDS: DEXT 5%/0.9% NACL 1,000 ML IV SCH ×2 (00:04→20:23)
[2020-09-25] MEDS: MEROPENEM 500MG in NORMAL SALINE 50ML IV SCH ×2 (01:55→12:58)
[2020-09-25] MEDS: MORPHINE SULFATE 2 MG/ML CPJ (NOT FOR IM USE) IV PRN ×4 (04:01→20:56)
[2020-09-25] MEDS: ONDANSETRON HCL 4MG/2ML INJ IV PRN ×2 (05:17→12:21)
[2020-09-25 06:53] LABS: HEMATOCRIT. 24.5 % (36.0-48.0); HEMOGLOBIN. 8.1 g/dL (12.0-16.0); MEAN CORPUSCULAR HEMOGLOBIN 25.4 pg (28.0-32.0); MEAN PLATELET VOLUME 8.9 fl (7.4-10.4); PLATELET 108 x1000/uL (130-400); RED BLOOD CELL COUNT 3.19 mill/uL (4.2-5.4); RED CELL DISTRIBUTION WIDTH 23.5 % (11.6-14.6)
[2020-09-25 07:12] LABS: PHOSPHORUS 3.7 mg/dL (2.5-4.9)
[2020-09-25] MEDS: IPRATROPIUM/ALBUTEROL 0.5-3(2.5)MG/3ML NEB HHN SCH ×4 (07:40→20:02)
[2020-09-25 09:11] LABS: GLOMERULAR BASEMENT MEMB AB 5 units (0-20)
[2020-09-25] MEDS: GUAIFENESIN 600MG ER TABLET PO SCH ×2 (09:12→20:23)
[2020-09-25] MEDS: ZINC SULFATE 220 MG ( 50 ) CAPSULE PO SCH (09:12)
[2020-09-25] MEDS: FAMOTIDINE 20MG TABLET PO SCH (09:12)
[2020-09-25] MEDS: ASCORBIC ACID 500 MG TABLET PO SCH ×2 (09:12→20:23)
[2020-09-25] MEDS: HYDROXYCHLOROQUINE SULFATE 200MG TABLET PO SCH (09:12)
[2020-09-25] MEDS: MIDODRINE HCL 5MG TABLET PO SCH ×3 (09:13→16:28)
[2020-09-25] MEDS: CHOLECALCIFEROL (D3) 1000 UNIT TABLET PO SCH (09:13)
[2020-09-25] MEDS: THROAT LOZENGES-BENZOCAINE/MENTH/CETYLPYRD CL LOZENGES MM PRN (09:21)
[2020-09-25] MEDS: CALCIUM CARBONATE 1,250 MG/5 ML UDC PO SCH ×2 (10:50→18:14)
[2020-09-25] MEDS: GUAIFENESIN 200MG/10ML SUGAR FREE UDC PO PRN (12:21)
[2020-09-25] MEDS: ENOXAPARIN 30MG/0.3ML SYR SUBCUT SCH (12:58)
[2020-09-25] MEDS ORDERED: LORAZEPAM 2MG/ML CPJ IV NR (13:00)
[2020-09-25 13:50] LABS: PLATELET ESTIMATE DECREASED
[2020-09-25] MEDS: BUDESONIDE 0.5MG/2ML NEB HHN SCH ×2 (14:14→20:02)
[2020-09-25 15:06] LABS: ANTI-MYELOPEROXIDASE AB < 9.0 U/mL (0.0-9.0); ANTI-PROTEINASE 3 ABS < 3.5 U/mL (0.0-3.5)
[2020-09-25] MEDS ORDERED: PREDNISONE 10MG TABLET PO SCH (18:20)
[2020-09-25] MEDS: BENZONATATE 100MG CAPSULE PO PRN (18:25)
[2020-09-25] MEDS: ALPRAZOLAM 0.5 MG TABLET PO PRN (19:48)
[2020-09-26] VITALS (13 sets, daily range): BP systolic 98–143; BP diastolic 57–96
[2020-09-26] MEDS: CALCIUM GLUCONATE 1GM PREMIX 50 ML IV SCH ×2 (01:07→14:32)
[2020-09-26] MEDS: MORPHINE SULFATE 2 MG/ML CPJ (NOT FOR IM USE) IV PRN ×4 (01:08→21:06)
[2020-09-26] MEDS: IPRATROPIUM/ALBUTEROL 0.5-3(2.5)MG/3ML NEB HHN SCH ×4 (02:16→21:15)
[2020-09-26] MEDS: ONDANSETRON HCL 4MG/2ML INJ IV PRN (02:39)
[2020-09-26] MEDS: ACETAMINOPHEN 325MG TABLET PO PRN (02:39)
[2020-09-26] MEDS: ALPRAZOLAM 0.5 MG TABLET PO PRN ×2 (04:28→15:35)
[2020-09-26] MEDS: DEXT 5%/0.9% NACL 1,000 ML IV SCH (05:39)
[2020-09-26 06:10] LABS: HEMATOCRIT. 24.3 % (36.0-48.0); HEMOGLOBIN. 7.6 g/dL (12.0-16.0); MEAN CORPUSCULAR HEMOGLOBIN 24.9 pg (28.0-32.0); MEAN CORPUSCULAR VOLUME 79.1 fL (81.0-99.0); MEAN PLATELET VOLUME 9.6 fl (7.4-10.4); PLATELET 118 x1000/uL (130-400); RED BLOOD CELL COUNT 3.07 mill/uL (4.2-5.4); RED CELL DISTRIBUTION WIDTH 23.6 % (11.6-14.6)
[2020-09-26 06:31] LABS: PHOSPHORUS 4.2 mg/dL (2.5-4.9)
[2020-09-26] MEDS: VISCOUS LIDOCAINE 2% 15 ML UDC MM PRN (07:01)
[2020-09-26] MEDS: CALCIUM CARBONATE 1,250 MG/5 ML UDC PO SCH ×2 (08:20→17:20)
[2020-09-26] MEDS: GUAIFENESIN 600MG ER TABLET PO SCH ×2 (09:00→21:06)
[2020-09-26] MEDS: HYDROXYCHLOROQUINE SULFATE 200MG TABLET PO SCH (09:00)
[2020-09-26 11:06] LABS: PLATELET ESTIMATE SLIGHTLY DECREASED
[2020-09-26] MEDS: MIDODRINE HCL 5MG TABLET PO SCH ×3 (13:00→17:21)
[2020-09-26] MEDS: FAMOTIDINE 20MG TABLET PO SCH (14:22)
[2020-09-26] MEDS: ZINC SULFATE 220 MG ( 50 ) CAPSULE PO SCH (14:22)
[2020-09-26] MEDS: CHOLECALCIFEROL (D3) 1000 UNIT TABLET PO SCH (14:22)
[2020-09-26] MEDS: ASCORBIC ACID 500 MG TABLET PO SCH ×2 (14:23→21:06)
[2020-09-26] MEDS: ENOXAPARIN 30MG/0.3ML SYR SUBCUT SCH (14:23)
[2020-09-26] MEDS: BENZONATATE 100MG CAPSULE PO PRN (14:24)
[2020-09-26] MEDS: GUAIFENESIN 200MG/10ML SUGAR FREE UDC PO PRN (14:41)
[2020-09-26] MEDS: PHENOL/SODIUM PHENOLATE 1.4% SRPAY 177ML MM PRN (17:23)
[2020-09-27] VITALS: BP 112/81
[2020-09-27] MEDS: DEXT 5%/0.9% NACL 1,000 ML IV SCH (00:58)
[2020-09-27] MEDS: CALCIUM GLUCONATE 1GM PREMIX 50 ML IV SCH ×2 (01:03→12:09)
[2020-09-27] MEDS: IPRATROPIUM/ALBUTEROL 0.5-3(2.5)MG/3ML NEB HHN SCH ×4 (01:15→21:28)
[2020-09-27] MEDS: ALPRAZOLAM 0.5 MG TABLET PO PRN (02:55)
[2020-09-27] MEDS: PHENOL/SODIUM PHENOLATE 1.4% SRPAY 177ML MM PRN ×2 (02:55→08:24)
[2020-09-27 04:00] VITALS: BP 128/82
[2020-09-27 08:00] VITALS: BP 122/93
[2020-09-27] MEDS: CALCIUM CARBONATE 1,250 MG/5 ML UDC PO SCH ×2 (08:24→16:59)
[2020-09-27] MEDS: VISCOUS LIDOCAINE 2% 15 ML UDC MM PRN (08:24)
[2020-09-27] MEDS: GUAIFENESIN 600MG ER TABLET PO SCH ×2 (08:25→20:35)
[2020-09-27] MEDS: MIDODRINE HCL 5MG TABLET PO SCH ×3 (08:25→16:59)
[2020-09-27] MEDS: ZINC SULFATE 220 MG ( 50 ) CAPSULE PO SCH (08:25)
[2020-09-27] MEDS: CHOLECALCIFEROL (D3) 1000 UNIT TABLET PO SCH (08:25)
[2020-09-27] MEDS: FAMOTIDINE 20MG TABLET PO SCH (08:26)
[2020-09-27] MEDS: ASCORBIC ACID 500 MG TABLET PO SCH ×2 (08:26→20:35)
[2020-09-27] MEDS: HYDROXYCHLOROQUINE SULFATE 200MG TABLET PO SCH (08:40)
[2020-09-27 09:58] LABS: BASOPHILS % 0.4 % (0.0-2.0); EOSINOPHILS % 0.5 % (0.0-5.0); HEMATOCRIT. 27.7 % (36.0-48.0); HEMOGLOBIN. 8.7 g/dL (12.0-16.0); LYMPHOCYTES % 7.2 % (20.0-50.0); MEAN CORPUSCULAR HEMOGLOBIN 25.5 pg (28.0-32.0); MEAN PLATELET VOLUME 10.1 fl (7.4-10.4); MONOCYTES % 10.9 % (2.0-8.0); PLATELET 143 x1000/uL (130-400); RED BLOOD CELL COUNT 3.42 mill/uL (4.2-5.4); RED CELL DISTRIBUTION WIDTH 23.7 % (11.6-14.6)
[2020-09-27] MEDS ORDERED: DEXTROSE 50% WATER 50ML SYRINGE IV SCH (10:40)
[2020-09-27] MEDS ORDERED: DEXTROSE 50% WATER 50ML SYRINGE IV ONE (10:44)
[2020-09-27] MEDS ORDERED: DEXT 10% WATER 1,000 ML IV SCH (11:00)
[2020-09-27] MEDS: MORPHINE SULFATE 2 MG/ML CPJ (NOT FOR IM USE) IV PRN ×2 (11:14→17:26)
[2020-09-27 11:15] VITALS: BP 129/87
[2020-09-27] MEDS: ENOXAPARIN 30MG/0.3ML SYR SUBCUT SCH (13:16)
[2020-09-27] MEDS: BUDESONIDE 0.5MG/2ML NEB HHN SCH (14:28)
[2020-09-27 16:00] VITALS: BP 112/62
[2020-09-27 16:15] LABS: CHLORIDE 114 mEq/L (98-107)
[2020-09-27 16:27] LABS: PHOSPHORUS 7.8 mg/dL (2.5-4.9)
[2020-09-27] MEDS ORDERED: SODIUM BICARBONATE 8.4% 1 MEQ/ML 50ML SYR IV NR (17:09)
[2020-09-27] MEDS ORDERED: POTASSIUM CHLORIDE INJ 30 MEQ in DEXT 5%/0.9% NACL 1,000 ML IV SCH (17:15)
[2020-09-27] MEDS ORDERED: SODIUM BICARBONATE 50 MEQ in DEXTROSE 5% WATER 1,000 ML IV SCH (18:30)
[2020-09-27 20:00] VITALS: BP 158/81
[2020-09-27] MEDS: SODIUM POLYSTYRENE SULFONATE 15 G/60 ML BOT PO NR ×2 (20:35→22:26)
[2020-09-28] VITALS (12 sets, daily range): BP systolic 92–149; BP diastolic 58–106
[2020-09-28] MEDS: IPRATROPIUM/ALBUTEROL 0.5-3(2.5)MG/3ML NEB HHN SCH ×4 (00:50→18:00)
[2020-09-28] MEDS: CALCIUM GLUCONATE 1GM PREMIX 50 ML IV SCH ×2 (04:49→12:54)
[2020-09-28 07:00] LABS: PHOSPHORUS 8.4 mg/dL (2.5-4.9)
[2020-09-28 08:01] LABS: HEMATOCRIT. 24.2 % (36.0-48.0); MEAN CORPUSCULAR HEMOGLOBIN 24.6 pg (28.0-32.0); MEAN CORPUSCULAR VOLUME 85.1 fL (81.0-99.0); PLATELET 116 x1000/uL (130-400); RED BLOOD CELL COUNT 2.84 mill/uL (4.2-5.4); RED CELL DISTRIBUTION WIDTH 24.7 % (11.6-14.6)
[2020-09-28] MEDS: BUDESONIDE 0.5MG/2ML NEB HHN SCH (08:57)
[2020-09-28] MEDS: GUAIFENESIN 600MG ER TABLET PO SCH ×2 (09:00→21:00)
[2020-09-28] MEDS: ZINC SULFATE 220 MG ( 50 ) CAPSULE PO SCH (09:03)
[2020-09-28] MEDS: MIDODRINE HCL 5MG TABLET PO SCH ×3 (09:04→17:00)
[2020-09-28] MEDS: FAMOTIDINE 20MG TABLET PO SCH (09:05)
[2020-09-28] MEDS: ASCORBIC ACID 500 MG TABLET PO SCH ×2 (09:05→21:00)
[2020-09-28] MEDS: CHOLECALCIFEROL (D3) 1000 UNIT TABLET PO SCH (09:05)
[2020-09-28] MEDS: HYDROXYCHLOROQUINE SULFATE 200MG TABLET PO SCH (09:05)
[2020-09-28] MEDS: CALCIUM CARBONATE 1,250 MG/5 ML UDC PO SCH ×2 (09:06→17:50)
[2020-09-28] MEDS: PHENOL/SODIUM PHENOLATE 1.4% SRPAY 177ML MM PRN (09:07)
[2020-09-28] MEDS: MORPHINE SULFATE 2 MG/ML CPJ (NOT FOR IM USE) IV PRN ×2 (09:09→23:53)
[2020-09-28 09:41] LABS: BG BASE EXCESS -19.9 mmol/L (-2.0-2.0); BG CARBOXYHEMOGLOBIN 0.7 % (0.5-1.5); BG DEOXYHEMOGLOBIN 2.5 % (0.0-5.0); BG FRACTION INSPIRED OXYGEN 32; BG HCO3 ACT 5.9 mmol/L (22.0-26.0); BG METHEMOGLOBIN 0.3 % (0.0-1.5); BG OXYGEN SATURATION 97.5 % (92.0-98.5); BG OXYHEMOGLOBIN 96.5 % (94.0-97.0); BG PH 7.216 (7.350-7.450); BG PO2 129.5 mmHg (75.0-100.0); BG SAMPLE SITE RIGHT RADIAL; BG TOTAL HEMOGLOBIN 7.6 g/dL (12.0-18.0); BG VENT MODE NASAL CANNULA
[2020-09-28] MEDS ORDERED: SODIUM BICARBONATE 8.4% 1 MEQ/ML 50ML SYR IV NR ×2 (10:30)
[2020-09-28] MEDS: CITRIC ACID/SODIUM CITRATE SOLN 30ML UDC PO SCH ×3 (11:07→17:00)
[2020-09-28 13:06] LABS: ATYPICAL P-ANCA <1:20 titer (Neg:<1:20); CYTOPLASMIC C-ANCA <1:20 titer (Neg:<1:20); PERINUCLEAR P-ANCA <1:20 titer (Neg:<1:20)
[2020-09-28] MEDS: SODIUM BICARBONATE 150 MEQ in DEXTROSE 5% WATER 1,000 ML IV SCH (13:33)
[2020-09-28] MEDS: ENOXAPARIN 30MG/0.3ML SYR SUBCUT SCH (14:00)
[2020-09-28] MEDS ORDERED: CEFEPIME 1,000 MG in DEXTROSE 5% WATER 50 ML IV SCH (16:30)
[2020-09-28 16:47] LABS: PLATELET ESTIMATE DECREASED
[2020-09-28] MEDS: CEFEPIME 1,000 MG in DEXTROSE 5% WATER 50 ML IV SCH (18:09)
[2020-09-28] MEDS: METRONIDAZOLE 500 MG PREMIX 100 ML IV SCH (18:10)
[2020-09-28] MEDS ORDERED: NOREPINEPHRINE 8 MG in DEXT 5% WATER 242 ML IV PRN (23:15)
[2020-09-29] VITALS (88 sets, daily range): BP systolic 36–193; BP diastolic 15–114
[2020-09-29] MEDS: METRONIDAZOLE 500 MG PREMIX 100 ML IV SCH ×4 (00:09→21:13)
[2020-09-29] MEDS: CALCIUM GLUCONATE 1GM PREMIX 50 ML IV SCH ×2 (00:10→12:08)
[2020-09-29 02:00] LABS: HEMATOCRIT. 36.1 % (36.0-48.0); HEMOGLOBIN. 10.7 g/dL (12.0-16.0); MEAN CORPUSCULAR HEMOGLOBIN 26.1 pg (28.0-32.0); MEAN CORPUSCULAR VOLUME 87.7 fL (81.0-99.0); PLATELET 89 x1000/uL (130-400); RED BLOOD CELL COUNT 4.11 mill/uL (4.2-5.4); RED CELL DISTRIBUTION WIDTH 23.3 % (11.6-14.6)
[2020-09-29] MEDS: IPRATROPIUM/ALBUTEROL 0.5-3(2.5)MG/3ML NEB HHN SCH ×4 (02:58→21:15)
[2020-09-29 03:50] LABS: PLATELET ESTIMATE DECREASED
[2020-09-29] MEDS: SODIUM BICARBONATE 150 MEQ in DEXTROSE 5% WATER 1,000 ML IV SCH ×4 (05:51→21:13)
[2020-09-29] MEDS: NOREPINEPHRINE 8 MG in DEXT 5% WATER 242 ML IV PRN ×2 (07:01→11:14)
[2020-09-29] MEDS ORDERED: SODIUM BICARBONATE 8.4% 1 MEQ/ML 50ML SYR IV ONE (08:11)
[2020-09-29] MEDS ORDERED: EPINEPHRINE 0.1MG/ML (1:10,000) 10ML SYR ONE (08:11)
[2020-09-29] MEDS ORDERED: FUROSEMIDE 100MG/10ML VIAL IVP NR (08:30)
[2020-09-29 08:39] LABS: BG BASE EXCESS -18.8 mmol/L (-2.0-2.0); BG CARBOXYHEMOGLOBIN 0.3 % (0.5-1.5); BG DEOXYHEMOGLOBIN 7.5 % (0.0-5.0); BG HCO3 ACT 7.4 mmol/L (22.0-26.0); BG METHEMOGLOBIN 0.3 % (0.0-1.5); BG OXYGEN SATURATION 92.5 % (92.0-98.5); BG OXYHEMOGLOBIN 91.9 % (94.0-97.0); BG PCO2 19.2 mmHg (35.0-45.0); BG PH 7.202 (7.350-7.450); BG PO2 83.9 mmHg (75.0-100.0); BG SAMPLE SITE RIGHT RADIAL; BG TOTAL HEMOGLOBIN 9.5 g/dL (12.0-18.0); BG VENT MODE NASAL CANNULA
[2020-09-29] MEDS ORDERED: SODIUM BICARBONATE 8.4% 1 MEQ/ML 50ML SYR IV NR ×2 (09:00→17:30)
[2020-09-29 09:14] LABS: CHLORIDE 108 mEq/L (98-107)
[2020-09-29] MEDS: METHYLPREDNISOLONE SOD SUCC 125 MG/2 ML VIAL IV SCH ×2 (09:14→17:12)
[2020-09-29 09:36] LABS: CREATINE KINASE 625 IU/L (26-192)
[2020-09-29 09:39] LABS: PHOSPHORUS 8.5 mg/dL (2.5-4.9)
[2020-09-29] MEDS ORDERED: DEXTROSE 50% WATER 50ML SYRINGE IV NR (09:45)
[2020-09-29] MEDS ORDERED: VECURONIUM BROMIDE 10 MG/VIAL IV ONE (09:58)
[2020-09-29] MEDS ORDERED: ETOMIDATE 2MG/ML 10ML VIAL IV ONE (09:58)
[2020-09-29] MEDS ORDERED: SODIUM CHLORIDE 0.9% 10ML VIAL ONE (09:58)
[2020-09-29] MEDS ORDERED: SUCCINYLCHOLINE CHLORIDE 200MG/10ML IV ONE (09:58)
[2020-09-29] MEDS: ZINC SULFATE 220 MG ( 50 ) CAPSULE PO SCH (10:03)
[2020-09-29] MEDS: CITRIC ACID/SODIUM CITRATE SOLN 30ML UDC PO SCH ×3 (10:03→17:00)
[2020-09-29] MEDS: CALCIUM CARBONATE 1,250 MG/5 ML UDC PO SCH ×2 (10:03→17:13)
[2020-09-29] MEDS: HYDROXYCHLOROQUINE SULFATE 200MG TABLET PO SCH (10:04)
[2020-09-29] MEDS: ASCORBIC ACID 500 MG TABLET PO SCH ×2 (10:04→20:06)
[2020-09-29] MEDS: FAMOTIDINE 20MG TABLET PO SCH (10:04)
[2020-09-29] MEDS: CHOLECALCIFEROL (D3) 1000 UNIT TABLET PO SCH (10:05)
[2020-09-29] MEDS: PHENYLEPHRINE 50 MG in DEXT 5% WATER 245 ML IV PRN ×3 (10:10→21:05)
[2020-09-29] MEDS: MIDODRINE HCL 5MG TABLET PO SCH ×3 (10:10→17:00)
[2020-09-29] MEDS ORDERED: LORAZEPAM 0.5MG TABLET PO NR (10:45)
[2020-09-29] MEDS ORDERED: VASOPRESSIN 20 UNIT in SODIUM CHLORIDE 0.9% 99 ML IV PRN (11:30)
[2020-09-29 11:52] LABS: BG BASE EXCESS -18.6 mmol/L (-2.0-2.0); BG CARBOXYHEMOGLOBIN 0.5 % (0.5-1.5); BG DEOXYHEMOGLOBIN 10.7 % (0.0-5.0); BG HCO3 ACT 8.3 mmol/L (22.0-26.0); BG METHEMOGLOBIN 0.4 % (0.0-1.5); BG OXYGEN SATURATION 89.2 % (92.0-98.5); BG OXYHEMOGLOBIN 88.4 % (94.0-97.0); BG PCO2 23.1 mmHg (35.0-45.0); BG PH 7.171 (7.350-7.450); BG PO2 74.8 mmHg (75.0-100.0); BG SAMPLE SITE RIGHT RADIAL; BG TOTAL HEMOGLOBIN 8.8 g/dL (12.0-18.0); BG VENT MODE NASAL CANNULA
[2020-09-29] MEDS: GUAIFENESIN 200MG/10ML SUGAR FREE UDC PO SCH ×2 (12:00→17:13)
[2020-09-29] MEDS: ONDANSETRON HCL 4MG/2ML INJ IV PRN (12:08)
[2020-09-29] MEDS: NOREPINEPHRINE 32 MG in DEXT 5% WATER 218 ML IV PRN ×2 (13:15→21:05)
[2020-09-29 13:54] LABS: PROTHROMBIN TIME 43.6 sec (9.6-11.0)
[2020-09-29 13:55] LABS: INR 4.1; PARTIAL THROMBOPLASTIN TIME 87.9 sec (23.4-31.0)
[2020-09-29] MEDS ORDERED: RACEPINEPHRINE 2.25% 0.5ML NEB VIAL HHN PRN (16:15)
[2020-09-29] MEDS ORDERED: DEXTROSE 50% WATER 50ML SYRINGE IV ONE (16:23)
[2020-09-29] MEDS ORDERED: DOPAMINE 800MG PREMIX (DOUBLE) 250 ML IV PRN (16:30)
[2020-09-29] MEDS: CEFEPIME 1,000 MG in DEXTROSE 5% WATER 50 ML IV SCH (17:12)
[2020-09-29 17:13] LABS: BG CARBOXYHEMOGLOBIN 0.3 % (0.5-1.5); BG DEOXYHEMOGLOBIN 87.8 % (0.0-5.0); BG METHEMOGLOBIN 4.4 % (0.0-1.5); BG OXYHEMOGLOBIN 7.5 % (94.0-97.0); BG PCO2 76.6 mmHg (35.0-45.0); BG PH < 6.680 (7.350-7.450); BG PO2 < 30.3 mmHg (75.0-100.0); BG SAMPLE SITE RIGHT RADIAL; BG TOTAL HEMOGLOBIN 7.4 g/dL (12.0-18.0); BG TOTAL RESPIRATORY RATE 14 b/min; BG VENT MODE VENT - AC
[2020-09-29 20:59] LABS: MEAN CORPUSCULAR HEMOGLOBIN 26.3 pg (28.0-32.0); MEAN CORPUSCULAR VOLUME 83.2 fL (81.0-99.0); RED CELL DISTRIBUTION WIDTH 22.3 % (11.6-14.6)
[2020-09-29] MEDS ORDERED: ENOXAPARIN 30MG/0.3ML SYR SUBCUT SCH (21:00)
[2020-09-29 21:13] LABS: HEMATOCRIT. 20.8 % (36.0-48.0); HEMOGLOBIN. 6.6 g/dL (12.0-16.0)
[2020-09-29 21:38] LABS: PLATELET 59 x1000/uL (130-400)
[2020-09-29 21:42] LABS: NUCLEATED RED BLOOD CELLS 1 /100 WBC; PLATELET ESTIMATE DECREASED
== END 2020-09-30 | DRG 871 ==
LOC: ER 03:10 → MICUSO 05:09 → EDBEDREQTM 05:11 → EDBEDREQ 05:11 → 6WST 23:04 → 5EST 09-21 22:10 → CVICU 09-24 20:00 → 6WST 09-26 08:30 → 5EST 09-28 22:02 → CVICU 09-28 23:41
PROVIDERS: ADMIT Internal Medicine; ATTEND Internal Medicine
PROC: 02HV33Z Insertion of Infusion Device into Superior Vena Cava, Percutaneous Approach (ICD-10-PCS; 2020-09-22)
PROC: B548ZZA Ultrasonography of Superior Vena Cava, Guidance (ICD-10-PCS; 2020-09-22)
PROC: 30233N1 Transfusion of Nonautologous Red Blood Cells into Peripheral Vein, Percutaneous Approach (ICD-10-PCS; 2020-09-22)
PROC: 5A12012 Performance of Cardiac Output, Single, Manual (ICD-10-PCS; principal; 2020-09-29)
PROC: 05HM33Z Insertion of Infusion Device into Right Internal Jugular Vein, Percutaneous Approach (ICD-10-PCS; 2020-09-29)
PROC: B543ZZA Ultrasonography of Right Jugular Veins, Guidance (ICD-10-PCS; 2020-09-29)
PROC: 5A1D70Z Performance of Urinary Filtration, Intermittent, Less than 6 Hours Per Day (ICD-10-PCS; 2020-09-29)
PROC: 0BH17EZ Insertion of Endotracheal Airway into Trachea, Via Natural or Artificial Opening (ICD-10-PCS; 2020-09-29)
PROC: 5A1935Z Respiratory Ventilation, Less than 24 Consecutive Hours (ICD-10-PCS; 2020-09-29)
PROC: 5A1D70Z Performance of Urinary Filtration, Intermittent, Less than 6 Hours Per Day (ICD-10-PCS; 2020-09-30)
DX: A41.9 Sepsis, unspecified organism (principal); E43 Unspecified severe protein-calorie malnutrition; J96.01 Acute respiratory failure with hypoxia; R65.21 Severe sepsis with septic shock; N17.0 Acute kidney failure with tubular necrosis; K85.90 Acute pancreatitis without necrosis or infection, unspecified; I21.A1 Myocardial infarction type 2; I50.23 Acute on chronic systolic (congestive) heart failure; J18.9 Pneumonia, unspecified organism; E87.2 Acidosis; G93.40 Encephalopathy, unspecified; J68.0 Bronchitis and pneumonitis due to chemicals, gases, fumes and vapors; M35.81 Multisystem inflammatory syndrome; I13.0 Hypertensive heart and chronic kidney disease with heart failure and stage 1 through stage 4 chronic kidney disease, or unspecified chronic kidney disease; D50.9 Iron deficiency anemia, unspecified; D70.9 Neutropenia, unspecified; E83.51 Hypocalcemia; E87.6 Hypokalemia; I50.9 Heart failure, unspecified; Z76.5 Malingerer [conscious simulation]; E83.39 Other disorders of phosphorus metabolism; F15.129 Other stimulant abuse with intoxication, unspecified; F32.9 Major depressive disorder, single episode, unspecified; F41.9 Anxiety disorder, unspecified; I45.10 Unspecified right bundle-branch block; K20.90 Esophagitis, unspecified without bleeding; F17.210 Nicotine dependence, cigarettes, uncomplicated; F14.10 Cocaine abuse, uncomplicated; E83.42 Hypomagnesemia; R74.01 Elevation of levels of liver transaminase levels; D69.6 Thrombocytopenia, unspecified; Z20.822 Contact with and (suspected) exposure to COVID-19; E16.2 Hypoglycemia, unspecified; I73.00 Raynaud's syndrome without gangrene; T43.621A Poisoning by amphetamines, accidental (unintentional), initial encounter; M32.14 Glomerular disease in systemic lupus erythematosus; N14.1 Nephropathy induced by other drugs, medicaments and biological substances; T50.8X5A Adverse effect of diagnostic agents, initial encounter; R13.10 Dysphagia, unspecified; N18.9 Chronic kidney disease, unspecified; Z98.891 History of uterine scar from previous surgery; Z79.899 Other long term (current) drug therapy; Z68.24 Body mass index [BMI] 24.0-24.9, adult; Y92.89 Other specified places as the place of occurrence of the external cause; Z82.49 Family history of ischemic heart disease and other diseases of the circulatory system
CPT/HCPCS: 36415; 36600; 71045; 71275; 76770; 76937; 80048; 80053; 80061; 80202; 80305; 81003; 82330; 82375; 82533; 82550; 82553; 82570; 82607; 82728; 82746; 82805; 82962; 83036; 83520; 83605; 83615; 83735; 83880; 84100; 84145; 84156; 84439; 84443; 84484; 85025; 85379; 85651; 86140; 86160; 86225; 86256; 86705; 86709; 86803; 86850; 86900; 86920; 87340; 87426; 93005; 93306; 93970; 94640; 94660; 99291; C1725; C1752; C1769; C1893; J0330; J0456; J0610; J0692; J0696; J1265; J1442; J1650; J1885; J1940; J2060; J2185; J2270; J2370; J2405; J2543; J2765; J2930; J3370; J3475; J3490; J7030; J7040; J7042; J7050; J7060; J7070; J7626; P9016; P9047; Q9967; A4315